=== PATIENT | female | born 1945 | race Caucasian/White ===

== ENCOUNTER 2018-09-15 11:30 | Outpatient (CLI) | payer MEDICARE, OTHER ==
[~2018-09-15] VITALS: Ht 157.5 cm; Wt 105.2 kg
[~2018-09-15 11:30] MED LIST: CHOL5000 PO; CITA20TA9 PO; GABA-486 PO; GLYB5TAB6 PO; LOVA20TA2 PO; METF-399 PO; OLME20TA24 PO
== END 2018-09-15 12:07 ==
LOC: PREOP 11:30
PROVIDERS: ATTEND Surgery
DX: Z01.818 Encounter for other preprocedural examination (principal)

== ENCOUNTER 2018-09-19 08:16 | Day surgery (SDC) | payer MEDICARE, OTHER ==
[~2018-09-19] VITALS: Ht 157.5 cm; Wt 105.2 kg
[2018-09-19] MEDS ORDERED: LACTATED RINGERS 1,000 ML IV ONE (08:37)
[2018-09-19] MEDS ORDERED: LACTATED RINGERS 1,000 ML IV STA (08:46)
--- NOTE | 2018-09-19 08:59 | Progress Note-Pre Operative ---
Pre-Operative Progress Note H&P Reviewed The H&P was reviewed, patient examined and no changes noted. Time Seen by Provider: 08:56 Date H&P Reviewed: Sep 19, 2018 Time H&P Reviewed: 08:57 Pre-Operative Diagnosis: Screening colonoscopy, Epigastric pain RENZO SULLIVAN DO Sep 19, 2018 08:59
[2018-09-19] MEDS ORDERED: HURRICAINE EXT TUBE (BENZOCAINE) XX PRN (09:00)
[2018-09-19 09:01] VITALS: BP 133/89
[2018-09-19] MEDS ORDERED: PROPOFOL INJECTION 50 ML IV ONE (09:10)
[2018-09-19] MEDS ORDERED: MIDAZOLAM 2 MG/2 ML (VERSED) VIAL ONE (09:11)
[2018-09-19] MEDS ORDERED: HURRICAINE EXT TUBE (BENZOCAINE) ONE (09:58)
[2018-09-19 10:05] VITALS: BP 112/59
--- NOTE | 2018-09-19 10:24 | Progress Note-Post Operative ---
Post-Operative Progess Note Surgeon (s)/Violin Teacher (s) Surgeon RENZO SULLIVAN DO Violin Teacher: none Pre-Operative Diagnosis Screening colonoscopy, Epigastric pain Post-Operative Diagnosis Gastritis Esophagitis Colon Polyps Colitis Diverticulosis Internal Hemorrhoids Procedure & Operative Findings Date of Procedure 09/19/18 Procedure Performed/Findings EGD with bx Colon with hot bx Colon with cold bx Anesthesia Type IV sedation by TOOLING INSPECTOR Estimated Blood Loss Estimated blood loss (mL): scant Specimens/Packing Specimens Removed Antral bx GE jxn bx Cecal Bx\ Descending colon polyp Rectal polyp RENZO SULLIVAN DO Sep 19, 2018 10:24
--- NOTE | 2018-09-19 10:27 | Endoscopy Discharge Instruct ---
Endo Procedure/Findings Findings 1.: Gastritis 2.: Polyp 3.: Diverticulosis 4.: Colitis, Internal Hemorrhoids Discharge Instructions - Activity: You might feel a little sleepy until tomorrow. This is due to the medicine you received to relax you. Until tomorrow, you should: NOT drive a car, operate machinery or power tools. NOT drink any alcoholic beverages. NOT make any important decisions or sign importortant papers. Do not return to work until tomorrow, unless otherwise instructed. Resume previous activities tomorrow. Diet: Start by taking liquids. If you tolerate liquids, advance to solid food. make an appointment for one week Notify Physician - If you experience excessive bleeding, unusual abdominal pain, fever, or chest pain, contact your doctor immediately. Follow-Up: - I have received and understand the above instructions and will call my doctor if I have any further questions. Patient Signature Date Nurse Signature Other (Relationship) RENZO SULLIVAN DO Sep 19, 2018 10:27
[2018-09-19 10:30] VITALS: BP 137/74
[2018-09-19 10:54] VITALS: BP 137/74
--- NOTE | 2018-09-19 12:57 | Anesthesia-General Post-Op ---
MAC Patient Condition Mental Status/LOC: Same as Preop Cardiovascular: Satisfactory Nausea/Vomiting: Absent Respiratory: Satisfactory Pain: Controlled Complications: Absent Post Op Complications Complications None Follow Up Care/Instructions Patient Instructions None needed. Anesthesiology Discharge Order Discharge Order Patient was seen after the procedure this morning and she was doing well, no complaints, stable vital signs, no apparent adverse anesthesia problems. SANDRA DAVE DO Sep 19, 2018 12:57
--- NOTE | 2018-09-19 16:01 | OPERATIVE REPORT ---
DATE OF SERVICE: 09/19/2018 PREOPERATIVE DIAGNOSES: Screening colonoscopy and epigastric pain. POSTOPERATIVE DIAGNOSES: 1. Gastritis. 2. Colon polyps. 3. Colitis. 4. Diverticula. 5. Internal hemorrhoids. PROCEDURES: 1. Esophagogastroduodenoscopy with biopsy. 2. Colonoscopy with hot biopsy. 3. Colonoscopy with cold biopsy. SURGEON: Edy Matson DO. BIOINFORMATICS SOFTWARE ENGINEER: None. ANESTHESIA: IV sedation by DRIVER LICENSE REVIEWING OFFICER. SPECIMEN: One biopsy from the antrum, one biopsy from the GE junction and then one cecal biopsy and then one polyp from the descending colon and one rectal polyp. BLOOD LOSS: Scant. FLUIDS: Per anesthesia. POSTOPERATIVE CONDITION: Stable. INDICATION FOR PROCEDURE: The patient is a 72-year-old female who needs a screening colonoscopy and has also been having some epigastric pain and needs an EGD for workup. FINDINGS: The patient had some gastritis and the biopsies were done. Also in the colon, she had 2 polyps, one in the descending colon, one in the rectum. She also had some colitis, seen in the cecum and she had diverticula as well as internal hemorrhoids. PROCEDURE NOTE: After informed consent was obtained, the patient was brought to the endoscopy suite, placed in the bed in left lateral decubitus position. She was administered IV sedation by the DRIVER LICENSE REVIEWING OFFICER who then monitored her vitals the entire time, heart rate, blood pressure, pulse ox and the scope was inserted down the mouth through the esophagus into the stomach. Once in the stomach, noted a little bit of gastritis, took a biopsy of this and the antrum. Pushed in the duodenum, duodenum looked fine in the first and second portions. Pulled back into the antrum. Retroflexed the scope. I did not really see a hiatal hernia. Pulled the scope into the esophagus. GE junction looked okay and then up out of the esophagus looked fine. Switched scopes, switched gloves, went down below, started with the colonoscopy. Pushed all the way about 150 cm, able to get to the cecum, took a picture of appendiceal orifice, noted the ileocecal valve and then slowly withdrew the scope insufflating to look circumferentially at the anne. In the cecum, saw what look like colitis and did a cold biopsy of this. Pulled back out of the cecum and saw the diverticula, took a picture of this and continued up to the hepatic flexure, then down the transverse colon, splenic flexure into the descending colon. In the descending colon, saw a polyp, did a hot biopsy of this, removed it completely. Then continued down into the sigmoid and finally into the rectum and in the rectum, saw another polyp, did another hot biopsy to remove this completely. Retroflexed in rectal vault, saw some minimal internal hemorrhoids, took a picture of this and then removed the scope. The patient tolerated the procedure and she was recovered in an endoscopy suite. Job ID: [id number] DocumentID: [id number] Dictated Date: 09/19/2018 11:26:07 Counterintelligence/Humint Specialist Date: 09/19/2018 16:00:21 Dictated By: EDY MATSON DO
== END 2018-09-19 10:55 | disposition home or self-care (01) ==
LOC: ENDO 08:16
PROVIDERS: ATTEND Surgery
DX: Z12.11 Encounter for screening for malignant neoplasm of colon (principal); K63.5 Polyp of colon; K62.1 Rectal polyp; K52.9 Noninfective gastroenteritis and colitis, unspecified; K29.70 Gastritis, unspecified, without bleeding; K57.30 Diverticulosis of large intestine without perforation or abscess without bleeding; K64.8 Other hemorrhoids; K63.89 Other specified diseases of intestine; E11.9 Type 2 diabetes mellitus without complications; I10 Essential (primary) hypertension; E78.5 Hyperlipidemia, unspecified; E66.9 Obesity, unspecified; Z79.84 Long term (current) use of oral hypoglycemic drugs; Z79.899 Other long term (current) drug therapy; Z68.41 Body mass index [BMI] 40.0-44.9, adult
CPT/HCPCS: 82962

== ENCOUNTER → 2018-12-09 | Outpatient (CLI) | payer MEDICARE, OTHER ==
--- NOTE | 2018-12-09 14:06 | Diagnostic Imaging Report ---
PROCEDURE: MR imaging cervical spine without contrast. TECHNIQUE: Multiplanar, multisequence MR imaging of the cervical spine was performed without contrast. INDICATION: Paresthesias of the left thumb FINDINGS: Vertebral body height and alignment appear normal. The vertebral bodies have normal signal characteristics. There are no intrinsic cord abnormalities. C2-3 disc is normal. C3-4 disc is normal. C4-5 disc has minimal bulging of the annulus. C5-6 disc space is narrowed. There is a left paracentral disc herniation causing cord displacement and exiting nerve root impingement on the left side. C6-7 disc has anterior bulging annulus. C7-T1 appears normal. 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 Dictated by: Dictated on workstation # [id number]
== END ==
LOC: RAD 12:56
PROVIDERS: ATTEND Nurse Practitioner Family
DX: M50.223 Other cervical disc displacement at C6-C7 level (principal); M25.80 Other specified joint disorders, unspecified joint
CPT/HCPCS: 72141